=== PATIENT | male | born 1965 | race Caucasian/White ===

== ENCOUNTER 2019-12-06 16:08 | Inpatient (IN) | payer MEDICAID, OTHER, SELFPAY ==
[~2019-12-06] VITALS: Ht 167.6 cm; Wt 63.6 kg
[2019-12-06] MEDS ORDERED: NS 1,000 ML IV SCH (16:20)
[2019-12-06] MEDS ORDERED: ASPIRIN 81 MG CHEW TABLET PO ONE (16:30)
[2019-12-06] MEDS ORDERED: COMBIVENT RESPIMAT 100-20MCG INHALER 4GM INH ONE (16:30)
[2019-12-06 16:50] LABS: BASO # 0.1 10^3/uL (0.0-0.2); BASO % 0.3 % (0.0-1.0); EOS % 0.1 % (0.0-3.0); HEMATOCRIT 48.1 % (42.0-52.0); HEMOGLOBIN 16.8 g/dl (13.5-17.5); LYMPH # 1.5 10^3/uL (1.5-5.0); LYMPH % 7.8 % (24.0-44.0); MEAN CORPUSCULAR HEMOGLOBIN 31.5 pg (27.0-33.0); MEAN CORPUSCULAR HGB CONC 34.9 g/dl (32.0-36.5); MEAN CORPUSCULAR VOLUME 90.2 fl (80.0-96.0); MONO # 2.8 10^3/uL (0.0-0.8); MONO % 14.5 % (0.0-5.0); NEUTROPHILS # 14.7 10^3/uL (1.5-8.5); NEUTROPHILS % 76.8 % (36.0-66.0); PLATELET COUNT, AUTOMATED 304 10^3/uL (150-450); RED BLOOD COUNT 5.33 10^6/uL (4.30-6.10); WHITE BLOOD COUNT 19.1 10^3/uL (4.0-10.0)
[2019-12-06 16:56] LABS: ABG HCO3 23.1 MEQ/L (22.0-26.0); ABG O2 SATURATION 95.6 % (95.0-99.0); ABG PARTIAL PRESSURE CO2 33.5 mmHg (35.0-45.0); ABG PARTIAL PRESSURE O2 74.2 mmHg (75.0-100.0); ABG STANDARD HCO3 24.5 MEQ/L (22.0-26.0); ABG TOTAL CO2 24.1 MEQ/L (22.0-29.0); ABG pH (ARTERIAL) 7.456 UNITS (7.350-7.450)
[2019-12-06] MEDS ORDERED: MOXIFLOXACIN HCL 400 MG in IV 1 EA IV ONE (17:15)
[2019-12-06 17:21] LABS: ALBUMIN 3.4 GM/DL (3.2-5.2); ALT/SGPT 56 U/L (12-78); BILIRUBIN,DIRECT 0.3 MG/DL (0.0-0.2); BILIRUBIN,TOTAL 0.9 MG/DL (0.2-1.0); BLOOD UREA NITROGEN 7 MG/DL (7-18); CALCIUM LEVEL 8.9 MG/DL (8.5-10.1); CARBON DIOXIDE LEVEL 26 MEQ/L (21-32); CHLORIDE LEVEL 100 MEQ/L (98-107); CK-MB VALUE MASS < 1.0 NG/ML (<3.6); CPK CREATINE PHOSPHOKINASE 89 U/L (39-308); CREATININE FOR GFR 0.72 MG/DL (0.70-1.30); GLOMERULAR FILTRATION RATE > 60.0 (>56); GLUCOSE, FASTING 119 MG/DL (70-100); MB/CK RELATIVE INDEX 1.12 (< OR =4); POTASSIUM SERUM 4.1 MEQ/L (3.5-5.1); SODIUM LEVEL 134 MEQ/L (136-145); TOTAL PROTEIN 7.6 GM/DL (6.4-8.2); TROPONIN I < 0.02 NG/ML (< 0.10)
[2019-12-06] MEDS ORDERED: MOM 30ML SUSPENSION UDC PO PRN (19:30)
[2019-12-06] MEDS ORDERED: ACETAMINOPHEN TAB 650MG DOSE (2X325MG) PO PRN (19:30)
[2019-12-06] MEDS ORDERED: MAALOX 30 ML SUSP *UDC PO PRN (19:30)
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
[2019-12-06] MEDS: cefTRIAXone SOD 1 GM in D5W MINI-BAG PLUS 50 ML IV SCH (20:13)
[2019-12-06 20:35] VITALS: BP 151/92
[2019-12-06] MEDS ORDERED: NORCO, ANEXSIA 5/325MG TABLET (HYDROcodone/ACETAMINOPHEN) PO PRN (20:45)
[2019-12-06] MEDS ORDERED: LORazepam 2 MG TAB PO PRN (20:45)
[2019-12-06 20:59] VITALS: BP 151/92
[2019-12-06] MEDS: ENOXAPARIN 40MG/0.4ML SYRINGE (J1650 PER 10MG) SC SCH (21:20)
[2019-12-06] MEDS: LIDOCAINE 5% (LIDODERM) PATCH TD SCH (21:20)
[2019-12-06] MEDS: THIAMINE 100 MG TAB PO SCH (21:20)
[2019-12-06 22:00] VITALS: BP 158/74
[2019-12-06] MEDS: DOXYCYCLINE HYCLATE 100 MG in D5W MINI-BAG PLUS 100 ML IV SCH (22:25)
[2019-12-07] VITALS (9 sets, daily range): BP systolic 131–161; BP diastolic 78–99
[2019-12-07] MEDS: NICOTINE 7 MG/24 HR TRANSDERMAL TD SCH ×2 (00:40→21:02)
[2019-12-07 06:42] LABS: HEMATOCRIT 47.5 % (42.0-52.0); HEMOGLOBIN 16.2 g/dl (13.5-17.5); MEAN CORPUSCULAR HEMOGLOBIN 30.5 pg (27.0-33.0); MEAN CORPUSCULAR HGB CONC 34.1 g/dl (32.0-36.5); MEAN CORPUSCULAR VOLUME 89.3 fl (80.0-96.0); PLATELET COUNT, AUTOMATED 291 10^3/uL (150-450); RED BLOOD COUNT 5.32 10^6/uL (4.30-6.10); WHITE BLOOD COUNT 23.7 10^3/uL (4.0-10.0)
[2019-12-07 06:56] LABS: BLOOD UREA NITROGEN 7 MG/DL (7-18); CALCIUM LEVEL 9.1 MG/DL (8.5-10.1); CARBON DIOXIDE LEVEL 24 MEQ/L (21-32); CHLORIDE LEVEL 101 MEQ/L (98-107); CREATININE FOR GFR 0.62 MG/DL (0.70-1.30); GLOMERULAR FILTRATION RATE > 60.0 (>56); GLUCOSE, FASTING 135 MG/DL (70-100); MAGNESIUM LEVEL 1.7 MG/DL (1.8-2.4); POTASSIUM SERUM 3.7 MEQ/L (3.5-5.1); SODIUM LEVEL 132 MEQ/L (136-145)
--- NOTE | 2019-12-07 07:41 | REP ---
REASON: Cough and dyspnea. PRIORS: None. The technique utilized in obtaining the radiograph has magnified the cardiac silhouette and accentuated the interstitial markings. There is a patchy opacity in the right lower lobe silhouetting out the diaphragmatic surface of the right lung. There is some right CP angle blunting. Lung madrigal are hypoexpanded further accentuating the findings. The left lung is clear. The heart is not enlarged. The osseous structures are within normal limits. IMPRESSION: Right lower lobe pneumonia versus atelectasis and possible right pleural effusion. Electronically Signed by Albert Hernandez DO 12/07/2019 08:39 A
[2019-12-07] MEDS: THIAMINE 100 MG TAB PO SCH ×2 (08:21→21:01)
[2019-12-07] MEDS: MULTIVITAMINS/MINERALS THERAP 1 TAB PO SCH (08:21)
[2019-12-07] MEDS: FOLIC ACID 1 MG TAB PO SCH (08:21)
[2019-12-07] MEDS: MAGNESIUM OXIDE 400 MG TAB (MAG-OX) PO SCH ×2 (08:22→21:01)
[2019-12-07] MEDS: **NOTE PATIENT COMMENT** MISC XX SCH (08:22)
[2019-12-07] MEDS ORDERED: MAG SULF 1GM/100ML (MAG RUN) 1 GM in IV 1 EA IV ONE (09:00)
[2019-12-07] MEDS: DOXYCYCLINE HYCLATE 100 MG in D5W MINI-BAG PLUS 100 ML IV SCH ×2 (09:33→21:01)
--- NOTE | 2019-12-07 11:17 | ECGEPIP ---
[facility] - ED Test Date: 2019-12-06 Pat Name: MACKENZIE BAUTISTA Department: Room: - Gender: Male General Office Assistant: jfmanjit : 1965 Requested By: KAY NIX Order Number: [id number] Reading MD: Tamiko Ballesteros Measurements Intervals [place] Rate: 86 P: 48 [place]: 148 QRS: 30 QRSD: 108 T: 33 QT: 357 QTc: 429 Interpretive Statements SINUS RHYTHM INCOMPLETE RIGHT BUNDLE BRANCH BLOCK NO PRIOR Electronically Signed on 12-07-2019 11:16:54 EDT by Tamiko Ballesteros
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
[2019-12-07] MEDS: NORCO, ANEXSIA 5/325MG TABLET (HYDROcodone/ACETAMINOPHEN) PO PRN ×2 (14:46→21:03)
[2019-12-07] MEDS: cefTRIAXone SOD 1 GM in D5W MINI-BAG PLUS 50 ML IV SCH (19:36)
[2019-12-07] MEDS: ENOXAPARIN 40MG/0.4ML SYRINGE (J1650 PER 10MG) SC SCH (21:01)
[2019-12-07] MEDS: LIDOCAINE 5% (LIDODERM) PATCH TD SCH (21:02)
[2019-12-08] VITALS (7 sets, daily range): BP systolic 139–154; BP diastolic 74–95
[2019-12-08 06:55] LABS: BASO # 0.1 10^3/uL (0.0-0.2); BASO % 0.2 % (0.0-1.0); HEMATOCRIT 48.5 % (42.0-52.0); HEMOGLOBIN 16.9 g/dl (13.5-17.5); LYMPH # 1.5 10^3/uL (1.5-5.0); LYMPH % 5.2 % (24.0-44.0); MEAN CORPUSCULAR HEMOGLOBIN 31.4 pg (27.0-33.0); MEAN CORPUSCULAR HGB CONC 34.8 g/dl (32.0-36.5); MEAN CORPUSCULAR VOLUME 90.1 fl (80.0-96.0); MONO # 4.2 10^3/uL (0.0-0.8); MONO % 14.3 % (0.0-5.0); NEUTROPHILS # 23.4 10^3/uL (1.5-8.5); NEUTROPHILS % 79.5 % (36.0-66.0); PLATELET COUNT, AUTOMATED 276 10^3/uL (150-450); RED BLOOD COUNT 5.38 10^6/uL (4.30-6.10); WHITE BLOOD COUNT 29.5 10^3/uL (4.0-10.0)
[2019-12-08 07:17] LABS: BLOOD UREA NITROGEN 14 MG/DL (7-18); CARBON DIOXIDE LEVEL 24 MEQ/L (21-32); CHLORIDE LEVEL 99 MEQ/L (98-107); CREATININE FOR GFR 0.68 MG/DL (0.70-1.30); GLOMERULAR FILTRATION RATE > 60.0 (>56); GLUCOSE, FASTING 104 MG/DL (70-100); SODIUM LEVEL 133 MEQ/L (136-145)
[2019-12-08] MEDS: FOLIC ACID 1 MG TAB PO SCH (08:12)
[2019-12-08] MEDS: MULTIVITAMINS/MINERALS THERAP 1 TAB PO SCH (08:12)
[2019-12-08] MEDS: THIAMINE 100 MG TAB PO SCH ×2 (08:12→20:41)
[2019-12-08] MEDS: **NOTE PATIENT COMMENT** MISC XX SCH (08:12)
[2019-12-08] MEDS: MAGNESIUM OXIDE 400 MG TAB (MAG-OX) PO SCH ×2 (08:12→20:40)
[2019-12-08] MEDS: DOXYCYCLINE HYCLATE 100 MG in D5W MINI-BAG PLUS 100 ML IV SCH ×2 (08:12→20:42)
--- NOTE | 2019-12-08 08:46 | REP ---
REPEAT DICTATION CT CHEST WITHOUT CONTRAST: HISTORY: Shortness of breath. Preliminary report is provided at time of exam by [email or web address]. Comparison is made with portable chest x-ray obtained just prior. CT FINDINGS: Preliminary digital cement side laster radiograph demonstrates increased markings in the right base. There is extensive ground-glass opacity type infiltrate in the right lower lobe. There is slight right lower lobe volume loss. There is a small quantity of right pleural fluid. There is some interlobular septal thickening in the infiltrate. No other significant parenchymal opacity is seen. There is a bronchitis picture with inspissated endobronchial secretions and peribronchial wall thickening in the left lower lobe and right lower lobe. There is mild plate-like atelectasis in the lingula and right middle lobe at the right lung base. There is some vascular calcification. There are two mediastinal lymph nodes, the largest of which is a precarinal lymph node measuring 1.1 cm in short axis dimension. Normal adrenals are seen. There is moderate diffuse fatty infiltration of the liver. IMPRESSION: Infiltrate right lower lobe with bronchitis picture. Findings consistent with pneumonia. Bacterial versus atypical versus viral. Small right effusion. Fatty liver change. Electronically Signed by Luis Silver MD 12/08/2019 11:08 A
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
[2019-12-08] MEDS: cefTRIAXone SOD 1 GM in D5W MINI-BAG PLUS 50 ML IV SCH (19:45)
[2019-12-08] MEDS: ENOXAPARIN 40MG/0.4ML SYRINGE (J1650 PER 10MG) SC SCH (20:41)
[2019-12-08] MEDS: NICOTINE 7 MG/24 HR TRANSDERMAL TD SCH (20:43)
[2019-12-08] MEDS: LIDOCAINE 5% (LIDODERM) PATCH TD SCH (20:53)
[2019-12-09 02:00] VITALS: BP 139/79
[2019-12-09 05:48] LABS: BASO # 0.1 10^3/uL (0.0-0.2); BASO % 0.2 % (0.0-1.0); HEMATOCRIT 45.3 % (42.0-52.0); HEMOGLOBIN 15.6 g/dl (13.5-17.5); LYMPH # 1.8 10^3/uL (1.5-5.0); LYMPH % 6.9 % (24.0-44.0); MEAN CORPUSCULAR HEMOGLOBIN 30.6 pg (27.0-33.0); MEAN CORPUSCULAR HGB CONC 34.4 g/dl (32.0-36.5); MONO # 4.2 10^3/uL (0.0-0.8); MONO % 15.8 % (0.0-5.0); NEUTROPHILS % 76.4 % (36.0-66.0); PLATELET COUNT, AUTOMATED 295 10^3/uL (150-450); RED BLOOD COUNT 5.09 10^6/uL (4.30-6.10); WHITE BLOOD COUNT 26.2 10^3/uL (4.0-10.0)
[2019-12-09 06:00] VITALS: BP 135/83
[2019-12-09 06:03] LABS: BLOOD UREA NITROGEN 15 MG/DL (7-18); CALCIUM LEVEL 8.8 MG/DL (8.5-10.1); CARBON DIOXIDE LEVEL 27 MEQ/L (21-32); CHLORIDE LEVEL 99 MEQ/L (98-107); CREATININE FOR GFR 0.68 MG/DL (0.70-1.30); GLOMERULAR FILTRATION RATE > 60.0 (>56); GLUCOSE, FASTING 126 MG/DL (70-100); SODIUM LEVEL 133 MEQ/L (136-145)
[2019-12-09] MEDS: DOXYCYCLINE HYCLATE 100 MG in D5W MINI-BAG PLUS 100 ML IV SCH ×2 (08:34→20:16)
[2019-12-09] MEDS: MAGNESIUM OXIDE 400 MG TAB (MAG-OX) PO SCH ×2 (08:34→20:17)
[2019-12-09] MEDS: FOLIC ACID 1 MG TAB PO SCH (08:34)
[2019-12-09] MEDS: MULTIVITAMINS/MINERALS THERAP 1 TAB PO SCH (08:34)
[2019-12-09] MEDS: THIAMINE 100 MG TAB PO SCH (08:34)
[2019-12-09] MEDS: **NOTE PATIENT COMMENT** MISC XX SCH (08:35)
[2019-12-09] MEDS ORDERED: MOXI1TAB PO (09:34)
[2019-12-09 10:00] VITALS: BP 127/84
[2019-12-09 12:05] LABS: BASO % 0.2 % (0.0-1.0); HEMATOCRIT 43.6 % (42.0-52.0); HEMOGLOBIN 15.3 g/dl (13.5-17.5); LYMPH % 7.8 % (24.0-44.0); MEAN CORPUSCULAR HEMOGLOBIN 31.5 pg (27.0-33.0); MEAN CORPUSCULAR HGB CONC 35.1 g/dl (32.0-36.5); MEAN CORPUSCULAR VOLUME 89.7 fl (80.0-96.0); MONO # 3.8 10^3/uL (0.0-0.8); MONO % 15.2 % (0.0-5.0); NEUTROPHILS # 19.1 10^3/uL (1.5-8.5); NEUTROPHILS % 76.3 % (36.0-66.0); PLATELET COUNT, AUTOMATED 296 10^3/uL (150-450); RED BLOOD COUNT 4.86 10^6/uL (4.30-6.10)
[2019-12-09 14:00] VITALS: BP_SYST 123; BP_SYST 149; BP_DIAS 75; BP_DIAS 78
[2019-12-09] MEDS ORDERED: cefTRIAXone SOD 2 GM in D5W MINI-BAG PLUS 50 ML IV SCH (20:00)
[2019-12-09] MEDS: ENOXAPARIN 40MG/0.4ML SYRINGE (J1650 PER 10MG) SC SCH (20:16)
[2019-12-09 20:17] VITALS: BP 141/93
[2019-12-09] MEDS: LIDOCAINE 5% (LIDODERM) PATCH TD SCH (20:18)
[2019-12-09] MEDS: NICOTINE 7 MG/24 HR TRANSDERMAL TD SCH (20:18)
[2019-12-09 22:00] VITALS: BP 141/93
[2019-12-10 02:00] VITALS: BP 137/90
[2019-12-10 06:00] VITALS: BP 139/86
[2019-12-10 06:08] LABS: BASO # 0.1 10^3/uL (0.0-0.2); BASO % 0.2 % (0.0-1.0); HEMATOCRIT 42.6 % (42.0-52.0); HEMOGLOBIN 14.6 g/dl (13.5-17.5); LYMPH # 1.9 10^3/uL (1.5-5.0); LYMPH % 8.8 % (24.0-44.0); MEAN CORPUSCULAR HEMOGLOBIN 30.4 pg (27.0-33.0); MEAN CORPUSCULAR HGB CONC 34.3 g/dl (32.0-36.5); MEAN CORPUSCULAR VOLUME 88.6 fl (80.0-96.0); MONO # 3.5 10^3/uL (0.0-0.8); MONO % 16.6 % (0.0-5.0); NEUTROPHILS # 15.6 10^3/uL (1.5-8.5); NEUTROPHILS % 73.7 % (36.0-66.0); PLATELET COUNT, AUTOMATED 286 10^3/uL (150-450); RED BLOOD COUNT 4.81 10^6/uL (4.30-6.10); WHITE BLOOD COUNT 21.2 10^3/uL (4.0-10.0)
[2019-12-10 06:33] LABS: BLOOD UREA NITROGEN 14 MG/DL (7-18); CALCIUM LEVEL 8.5 MG/DL (8.5-10.1); CARBON DIOXIDE LEVEL 26 MEQ/L (21-32); CHLORIDE LEVEL 98 MEQ/L (98-107); CREATININE FOR GFR 0.66 MG/DL (0.70-1.30); GLOMERULAR FILTRATION RATE > 60.0 (>56); GLUCOSE, FASTING 116 MG/DL (70-100); POTASSIUM SERUM 3.7 MEQ/L (3.5-5.1); SODIUM LEVEL 132 MEQ/L (136-145)
[2019-12-10] MEDS: MULTIVITAMINS/MINERALS THERAP 1 TAB PO SCH (08:12)
[2019-12-10] MEDS: MAGNESIUM OXIDE 400 MG TAB (MAG-OX) PO SCH (08:12)
[2019-12-10] MEDS: FOLIC ACID 1 MG TAB PO SCH (08:12)
[2019-12-10] MEDS: DOXYCYCLINE HYCLATE 100 MG in D5W MINI-BAG PLUS 100 ML IV SCH (08:13)
[2019-12-10] MEDS: **NOTE PATIENT COMMENT** MISC XX SCH (08:13)
[2019-12-10 10:00] VITALS: BP 137/89
[2019-12-10] MEDS ORDERED: cefTRIAXone SOD 2 GM in D5W MINI-BAG PLUS 50 ML IV SCH (12:00)
--- NOTE | 2019-12-10 12:14 | IPN ---
DATE: 12/09/2019 SUBJECTIVE: "I want to go home today." Patient denies fever or chills. No shortness of breath, dyspnea on exertion. Cough productive of sputum. No nausea, vomiting, epigastric pain or diarrhea. OBJECTIVE PHYSICAL EXAMINATION VITALS: Temperature 98.3, current. Tmax on 12/08/2019 at 10:00 a.m. 100.2. Pulse 109, respiratory rate 20, blood pressure 135/83, 96% on room air. GEN:disheveled.Poor dentition with missing teeth in the upper and lower teeth. No jugular venous distention (JVD). No thyromegaly. No use of respiratory accessory muscles. No nasal flaring. Lungs: Decreased air entry. Right basilar fine crackles. Heart: S1, S2, sinus rhythm. no tachycardia. Abdomen is soft, nontender, nondistended. Positive bowel sounds. Extremities: No cyanosis, clubbing or pitting edema. LABORATORY DATA: White count 26.2, hemoglobin 30, hematocrit 45, platelet count 295. Sodium 133, potassium 4, chloride 99, bicarbonate 27, BUN 15, creatinine 0.68, glucose 126. Microbiology: Yeast in a sputum. Two sets of blood culture negative. Respiratory panel pending. CT chest 12/06/2019: Infiltrate right lower lobe with bronchitis consistent with pneumonia, small right effusion, fatty liver change. ASSESSMENT/PLAN: 54-year-old alcoholic with fatty liver admitted 12/06/2019 with complaints of shortness of breath of 1-1/2 days duration, hypertension and multiple previous surgeries presents with sepsis secondary to pneumonia. IMPRESSION: 1. Pneumonia, currently on ceftriaxone and doxycycline. White count is 26,000 today with low grade temperature yesterday at 10:00 a.m. Patient is kept on IV antibiotics, but will change to 2grams iv ceftriaxone at 1999. May transition to Avelox as outpatient. Patient is adamant about leaving today but does not want to leave against medical advice. Therefore, will recheck patient's CBC. 2. Alcohol dependence: Currently on seizure delirium tremens precautions, thiamine folate, multivitamin and Ativan. He currently denies any restlessness and paresthesias or hallucinations. 3. Hypertension: Most likely secondary to chronic back pain. Does not want any narcotics. 4. Tobacco abuse: On nicotine patch. DISPOSITION: Patient wants to leave but does want to leave against medical advice. Therefore, if white count is improved, he is clinically stable, he may be discharged home later today. ROCIO
[2019-12-10 13:17] LABS: BASO % 0.2 % (0.0-1.0); HEMATOCRIT 42.5 % (42.0-52.0); HEMOGLOBIN 14.8 g/dl (13.5-17.5); LYMPH # 1.7 10^3/uL (1.5-5.0); LYMPH % 8.2 % (24.0-44.0); MEAN CORPUSCULAR HEMOGLOBIN 31.5 pg (27.0-33.0); MEAN CORPUSCULAR HGB CONC 34.8 g/dl (32.0-36.5); MEAN CORPUSCULAR VOLUME 90.4 fl (80.0-96.0); MONO # 3.3 10^3/uL (0.0-0.8); MONO % 15.9 % (0.0-5.0); NEUTROPHILS # 15.7 10^3/uL (1.5-8.5); NEUTROPHILS % 75.2 % (36.0-66.0); PLATELET COUNT, AUTOMATED 299 10^3/uL (150-450); WHITE BLOOD COUNT 20.9 10^3/uL (4.0-10.0)
[2019-12-10 14:04] LABS: ERYTHROCYTE SEDIMENTATION RATE 68 mm/hr (0-20)
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
== END 2019-12-10 13:35 | disposition home or self-care (01) | DRG 139 ==
LOC: M ED 16:08 → M ED INP 19:24 → ENRESERV 20:03 → M MSPAV 20:35
PROVIDERS: ADMIT Internal Medicine; ATTEND General Practice
DX: J18.9 Pneumonia, unspecified organism (principal); J90 Pleural effusion, not elsewhere classified; K76.0 Fatty (change of) liver, not elsewhere classified; E83.42 Hypomagnesemia; I10 Essential (primary) hypertension; F17.200 Nicotine dependence, unspecified, uncomplicated; R73.9 Hyperglycemia, unspecified; F10.20 Alcohol dependence, uncomplicated; Z11.59 Encounter for screening for other viral diseases

== ENCOUNTER → 2019-12-16 | Outpatient (REF) | payer MEDICAID, OTHER ==
[~2019-12-16] MED LIST: MOXI1TAB PO
[2019-12-16 18:02] LABS: BASO # 0.1 10^3/uL (0.0-0.2); BASO % 0.5 % (0.0-1.0); EOS # 0.1 10^3/uL (0.0-0.5); EOS % 0.6 % (0.0-3.0); HEMATOCRIT 40.9 % (42.0-52.0); HEMOGLOBIN 13.2 g/dl (13.5-17.5); LYMPH # 2.8 10^3/uL (1.5-5.0); LYMPH % 16.4 % (24.0-44.0); MEAN CORPUSCULAR HEMOGLOBIN 30.6 pg (27.0-33.0); MEAN CORPUSCULAR HGB CONC 32.3 g/dl (32.0-36.5); MEAN CORPUSCULAR VOLUME 94.9 fl (80.0-96.0); MONO # 1.9 10^3/uL (0.0-0.8); MONO % 11.3 % (0.0-5.0); NEUTROPHILS # 12.1 10^3/uL (1.5-8.5); NEUTROPHILS % 70.6 % (36.0-66.0); PLATELET COUNT, AUTOMATED 673 10^3/uL (150-450); RED BLOOD COUNT 4.31 10^6/uL (4.30-6.10); WHITE BLOOD COUNT 17.1 10^3/uL (4.0-10.0)
[2019-12-16 18:20] LABS: HEMOGLOBIN A1c 6.1 %
[2019-12-16 18:33] LABS: ALBUMIN 2.6 GM/DL (3.2-5.2); ALT/SGPT 154 U/L (12-78); BILIRUBIN,TOTAL 0.4 MG/DL (0.2-1.0); BLOOD UREA NITROGEN 9 MG/DL (7-18); CALCIUM LEVEL 8.4 MG/DL (8.5-10.1); CARBON DIOXIDE LEVEL 28 MEQ/L (21-32); CHLORIDE LEVEL 100 MEQ/L (98-107); CHOLESTEROL LEVEL 135 MG/DL (<200); CHOLESTEROL RISK RATIO 6.428 (<5); CREATININE FOR GFR 0.73 MG/DL (0.70-1.30); FREE T4 1.45 NG/DL (0.76-1.46); GLOMERULAR FILTRATION RATE > 60.0 (>56); GLUCOSE, FASTING 103 MG/DL (70-100); HDL CHOLESTEROL 21 MG/DL (>40); LDL CHOLESTEROL 95 MG/DL (<100); NON-HDL-C 114 MG/DL; POTASSIUM SERUM 4.4 MEQ/L (3.5-5.1); SODIUM LEVEL 136 MEQ/L (136-145); TOTAL PROTEIN 7.8 GM/DL (6.4-8.2); TRIGLYCERIDES LEVEL 93 MG/DL (<150)
== END ==
LOC: M SFHCPLAZ 14:27
PROVIDERS: ATTEND Physician Assistant
DX: Z13.220 Encounter for screening for lipoid disorders (principal); Z13.29 Encounter for screening for other suspected endocrine disorder; J18.9 Pneumonia, unspecified organism; Z13.1 Encounter for screening for diabetes mellitus

== ENCOUNTER → 2020-09-28 | Outpatient (CLI) | payer MEDICAID, OTHER ==
--- NOTE | 2020-09-28 10:32 | REPPI ---
INDICATION: R06.02 SHORTNESS OF BREATH COMPARISON: 12/06/2019 TECHNIQUE: PA and lateral. FINDINGS: The mediastinum and cardiac silhouette are normal. Previously identified right lower lobe consolidation and effusion have relatively resolved leaving behind areas of parenchymal scarring and presumed pleural scarring although small pleural effusion cannot be excluded. Left hemithorax is well aerated and clear. IMPRESSION: Presumed chronic pleuroparenchymal changes involving the right mid to lower lung zone and diaphragmatic surface. Small residual right pleural effusion cannot definitively be excluded. <Electronically signed by Bipin Feliciano > 09/28/20 102
== END ==
LOC: M PLAIMG 09:29
PROVIDERS: ATTEND Physician Assistant
DX: R06.02 Shortness of breath (principal); J94.8 Other specified pleural conditions

== ENCOUNTER → 2020-10-28 | Outpatient (CLI) | payer OTHER | LOC: M LABSMTC 12:06 | PROVIDERS: ATTEND Anesthesiology | DX: Z01.812 Encounter for preprocedural laboratory examination (principal) ==

== ENCOUNTER → 2020-10-29 | Outpatient (CLI) | payer OTHER ==
--- NOTE | 2020-10-29 17:36 | REPPI ---
INDICATION: PRE OP COMPARISON: 09/28/2020. TECHNIQUE: PA/Lateral FINDINGS: Lungs: Once again there appears to be interstitial fibrotic change in the right lung base essentially unchanged. There is slight blunting of the right costophrenic angle unchanged. Left lung remains clear. Heart: Normal in size. Mediastinum: Mediastinal silhouette unremarkable. Bones and soft tissues: There are mild degenerative changes of the spine without compression deformity. IMPRESSION: Stable interstitial fibrotic parenchymal changes right lung base with slight blunting of the right costophrenic angle. No change since prior study. <Electronically signed by Selvin Matute > 10/29/20 [id number]
== END ==
LOC: M PLAIMG 14:34
PROVIDERS: ATTEND Family Medicine
DX: Z01.818 Encounter for other preprocedural examination (principal)

== ENCOUNTER → 2020-10-29 | Outpatient (REF) | payer OTHER ==
[2020-10-29 15:19] LABS: HEMATOCRIT 53.4 % (42.0-52.0); HEMOGLOBIN 17.9 g/dl (13.5-17.5); MEAN CORPUSCULAR HEMOGLOBIN 30.2 pg (27.0-33.0); MEAN CORPUSCULAR HGB CONC 33.5 g/dl (32.0-36.5); MEAN CORPUSCULAR VOLUME 90.2 fl (80.0-96.0); PLATELET COUNT, AUTOMATED 279 10^3/uL (150-450); RED BLOOD COUNT 5.92 10^6/uL (4.30-6.10); WHITE BLOOD COUNT 11.1 10^3/uL (4.0-10.0)
[2020-10-29 15:40] LABS: BLOOD UREA NITROGEN 10 MG/DL (7-18); CALCIUM LEVEL 9.3 MG/DL (8.5-10.1); CARBON DIOXIDE LEVEL 30 MEQ/L (21-32); CHLORIDE LEVEL 103 MEQ/L (98-107); CREATININE FOR GFR 0.87 MG/DL (0.70-1.30); GLOMERULAR FILTRATION RATE > 60.0 (>56); GLUCOSE, FASTING 93 MG/DL (70-100); POTASSIUM SERUM 4.2 MEQ/L (3.5-5.1); SODIUM LEVEL 138 MEQ/L (136-145)
[2020-10-29 16:16] LABS: HEMOGLOBIN A1c 5.6 %
== END ==
LOC: M SFHCPLAZ 14:34
PROVIDERS: ATTEND Family Medicine
DX: Z01.818 Encounter for other preprocedural examination (principal); R73.03 Prediabetes

== ENCOUNTER 2020-11-02 05:59 | Day surgery (SDC) | payer OTHER ==
[~2020-11-02] VITALS: Ht 167.6 cm; Wt 73.5 kg
[2020-11-02] MEDS ORDERED: ceFAZolin SOD 1 GM in D5W MINI-BAG PLUS 50 ML IV ONE (06:00)
[2020-11-02] MEDS ORDERED: LR 1,000 ML IV ONE (06:00)
[2020-11-02] MEDS ORDERED: LIDOCAINE 1% MDV 20ML VIAL SQ PRN (06:00)
[2020-11-02] MEDS ORDERED: POLYSPORIN OPHTH OINT 3.5 GM As Ordered ONE (07:15)
[2020-11-02] MEDS ORDERED: LIDOCAINE 2% W/EPINEPHRINE 20ML VIAL **PRES FREE As Ordered ONE (07:15)
[2020-11-02] MEDS ORDERED: POVIDONE-IODINE 5% OPHTH PREP SOL 30ML As Ordered ONE (07:15)
[2020-11-02] MEDS ORDERED: fentaNYL 100 MCG/2 ML INJECTION (J3010) As Ordered ONE (07:19)
[2020-11-02] MEDS ORDERED: MIDAZOLAM INJ 2MG/2ML VIAL (J2250 PER 1MG) As Ordered ONE (07:19)
[2020-11-02] MEDS ORDERED: LIDOCAINE 2% 100MG/5ML SDV (FOR ANES.) As Ordered ONE (07:19)
[2020-11-02] MEDS ORDERED: propofoL 200 MG/20 ML VIAL As Ordered ONE (07:19)
[2020-11-02] MEDS ORDERED: ACETAMINOPHEN 1000MG 100ML IV BTL (OFIRMEV) (J0131 PER 10MG) As Ordered ONE (08:10)
--- NOTE | 2020-11-02 08:47 | POST-OPPD ---
Postoperative Procedure Note Date Of Procedure: Nov 02, 2020 PREOPERATIVE DIAGNOSIS: Bilateral inferior lateral periorbital masses. POSTOPERATIVE DIAGNOSIS: same FINDINGS: right cyst, left 2 cysts PROCEDURE: Excision of bilateral inferior lateral periorbital masses. SURGEON: Dr Watkins ANESTHESIA: local with sedation SPECIMENS: right and left cysts ESTIMATED BLOOD LOSS: 1 cc REPLACED: none DRAINS: none COMPLICATIONS: none POSTOPERATIVE CONDITION: stable [id number] ALEKSANDR WATKINS DO Nov 02, 2020 08:47
[2020-11-02 09:05] VITALS: BP 123/80
--- NOTE | 2020-11-02 11:23 | RO ---
OPERATIVE NOTE DATE OF OPERATION: 11/02/2020 PREOPERATIVE DIAGNOSIS: Bilateral inferolateral periorbital masses. POSTOPERATIVE DIAGNOSIS: Bilateral inferolateral periorbital masses. PROCEDURE: Excision of bilateral inferolateral periorbital masses. ATTENDING SURGEON: Vonnie Lazar DO, FACOS ANESTHESIA: Local with sedation. SPECIMEN SENT: Right and left cyst. FINDINGS: There is right cyst x1 and left area has two cysts. ESTIMATED BLOOD LOSS: 1 mL PROCEDURE: This is a 55-year-old male who is seen in our office complaining of a slow growing cyst that he had over several months. He did stick a needle in his left periorbital area which caused some inflammation. Currently he has no active inflammation. The cyst is interfering with a downgaze position and he needs to have them removed. Risks, benefits and alternatives were discussed with the patient in detail and he is ready to proceed. The day of surgery, he was marked in the preoperative holding area. No inflammation or redness is identified and he was ready to proceed. He was brought into the operating room, placed in supine position. Preoperative antibiotics were given. Sequentials were placed on the lower calves. Sedation was given to the patient. 2% lidocaine with epinephrine was infiltrated in the area and after a sufficient time passed, we started the procedure on the right. A 1 cm incision is carried out using 15 blade. Careful dissection identified the completely walled off hard cyst which was carefully dissected of surrounding structures and removed in all entirety. The pocket was irrigated. The punctum was identified and excised together with a sliver of skin and the wound was closed in layers with interrupted 5-0 Monocryl sutures and a 6-0 Chromic gut. Then we turned our attention to the left side which was a much larger area. A horizontal incision along the crease of one of the natural rhytids was carried. Incision is 1-1/2 cm. Careful dissection is done to identify one large cyst which was completely affixed to the skin and the punctum and had partially ruptured, producing the white, thick contents. The cyst wall was dissected off the surrounding structures, the punctum identified and dissected together with the sliver of skin and then a second cyst which was completely intact was identified and it was also carefully from adhesions and removed intact. The wound was irrigated with bacitracin irrigation and then closed in layers with interrupted 5-0 Monocryl sutures and a 6-0 plain gut. Bacitracin ophthalmic ointment is applied to the incision. The patient tolerated the procedure well and transferred to the recovery room in stable condition.
== END 2020-11-02 09:16 | disposition home or self-care (01) ==
LOC: M SDC 05:59
PROVIDERS: ATTEND Plastic Surgery Surgery of the Hand
DX: L72.3 Sebaceous cyst (principal); F17.218 Nicotine dependence, cigarettes, with other nicotine-induced disorders; F12.10 Cannabis abuse, uncomplicated
CPT/HCPCS: 11441; 11442; 88304; J0131; J0690; J2250; J3010

== ENCOUNTER 2021-07-25 07:48 | Emergency (ER) | payer OTHER ==
[~2021-07-25] VITALS: Ht 170.2 cm; Wt 76.1 kg
[2021-07-25 07:48] VITALS: BP 151/90
[2021-07-25 08:38] LABS: HEMATOCRIT 50.2 % (42.0-52.0); MEAN CORPUSCULAR HGB CONC 33.9 g/dl (32.0-36.5); MEAN CORPUSCULAR VOLUME 91.6 fl (80.0-96.0); PLATELET COUNT, AUTOMATED 269 10^3/uL (150-450); RED BLOOD COUNT 5.48 10^6/uL (4.30-6.10); WHITE BLOOD COUNT 11.4 10^3/uL (4.0-10.0)
[2021-07-25 09:00] LABS: ERYTHROCYTE SEDIMENTATION RATE 7 mm/hr (0-20)
[2021-07-25 09:08] LABS: BLOOD UREA NITROGEN 13 MG/DL (7-18); C REACTIVE PROTEIN QUANTITATIV 0.79 MG/DL (0.00-0.30); CARBON DIOXIDE LEVEL 31 MEQ/L (21-32); CHLORIDE LEVEL 104 MEQ/L (98-107); CREATININE FOR GFR 0.93 MG/DL (0.70-1.30); GLOMERULAR FILTRATION RATE > 60.0 (>56); GLUCOSE, FASTING 118 MG/DL (70-100); POTASSIUM SERUM 4.3 MEQ/L (3.5-5.1); SODIUM LEVEL 139 MEQ/L (136-145)
== END 2021-07-25 10:43 | disposition left against medical advice (07) ==
LOC: M ED 07:48
DX: Z53.21 Procedure and treatment not carried out due to patient leaving prior to being seen by health care provider (principal)

== ENCOUNTER → 2022-11-09 | Outpatient (REF) | payer OTHER | LOC: M SFHCPLAZ 09:28 | PROVIDERS: ATTEND Family Medicine | DX: I10 Essential (primary) hypertension (principal); J44.9 Chronic obstructive pulmonary disease, unspecified; K70.0 Alcoholic fatty liver; Z11.9 Encounter for screening for infectious and parasitic diseases, unspecified; Z13.6 Encounter for screening for cardiovascular disorders; Z53.9 Procedure and treatment not carried out, unspecified reason ==

== ENCOUNTER → 2022-11-09 | Outpatient (CLI) | payer OTHER ==
[2022-11-09 14:36] LABS: HEMATOCRIT 56.1 % (42.0-52.0); HEMOGLOBIN 18.8 g/dl (13.5-17.5); MEAN CORPUSCULAR HEMOGLOBIN 30.9 pg (27.0-33.0); MEAN CORPUSCULAR HGB CONC 33.5 g/dl (32.0-36.5); MEAN CORPUSCULAR VOLUME 92.3 fl (80.0-96.0); PLATELET COUNT, AUTOMATED 302 10^3/uL (150-450); RED BLOOD COUNT 6.08 10^6/uL (4.30-6.10); WHITE BLOOD COUNT 10.8 10^3/uL (4.0-10.0)
[2022-11-09 14:54] LABS: HEMOGLOBIN A1c 5.6 % (4.0-6.0)
[2022-11-09 14:58] LABS: THYROID STIMULATING HORMONE 1.302 uIU/ML (0.55-4.78)
[2022-11-09 15:09] LABS: ALBUMIN 3.8 G/DL (3.2-5.2); ALKALINE PHOSPHATASE 73 U/L (46-116); ALT/SGPT 30 U/L (7.0-40); AST/SGOT 26 U/L (<34); BILIRUBIN,TOTAL 0.4 MG/DL (0.3-1.2); BLOOD UREA NITROGEN 10 MG/DL (9-23); CALCIUM LEVEL 9.2 MG/DL (8.5-10.1); CARBON DIOXIDE LEVEL 29 MMOL/L (20-31); CHLORIDE LEVEL 103 MMOL/L (98-107); CHOLESTEROL LEVEL 151 MG/DL (<200); CHOLESTEROL RISK RATIO 2.83 (<5); CREATININE FOR GFR 0.85 MG/DL (0.70-1.30); GLOMERULAR FILTRATION RATE > 60.0 (>56); GLUCOSE, FASTING 106 MG/DL (60-100); HDL CHOLESTEROL 53.3 MG/DL (>40); LDL CHOLESTEROL 81.1 MG/DL (<100); NON-HDL-C 97.7 MG/DL; POTASSIUM SERUM 4.6 MMOL/L (3.5-5.1); SODIUM LEVEL 137 MMOL/L (136-145); TOTAL PROTEIN 7.5 G/DL (5.7-8.2); TRIGLYCERIDES LEVEL 83 MG/DL (<150)
== END ==
LOC: M PLALAB 09:22
PROVIDERS: ATTEND Family Medicine
DX: Z13.6 Encounter for screening for cardiovascular disorders (principal); K70.0 Alcoholic fatty liver; Z11.9 Encounter for screening for infectious and parasitic diseases, unspecified; I10 Essential (primary) hypertension; J44.9 Chronic obstructive pulmonary disease, unspecified

== ENCOUNTER 2023-01-18 06:02 | Emergency (ER) | payer OTHER ==
[2023-01-18] MEDS ORDERED: ALBU8.5H (06:24)
[2023-01-18] MEDS ORDERED: AMLO1TAB24 (06:24)
[2023-01-18 06:38] LABS: BASO # 0.1 10^3/uL (0.0-0.2); BASO % 0.7 % (0.0-1.0); EOS # 0.1 10^3/uL (0.0-0.5); EOS % 0.7 % (0.0-3.0); HEMATOCRIT 53.2 % (42.0-52.0); HEMOGLOBIN 18.2 g/dl (13.5-17.5); LYMPH # 3.1 10^3/uL (1.5-5.0); MEAN CORPUSCULAR HEMOGLOBIN 31.4 pg (27.0-33.0); MEAN CORPUSCULAR HGB CONC 34.2 g/dl (32.0-36.5); MEAN CORPUSCULAR VOLUME 91.7 fl (80.0-96.0); MONO % 13.7 % (2.0-8.0); NEUTROPHILS # 7.3 10^3/uL (1.5-8.5); NEUTROPHILS % 59.6 % (36.0-66.0); PLATELET COUNT, AUTOMATED 279 10^3/uL (150-450); WHITE BLOOD COUNT 12.2 10^3/uL (4.0-10.0)
[2023-01-18 06:58] LABS: BLOOD UREA NITROGEN 9 MG/DL (9-23); CALCIUM LEVEL 9.8 MG/DL (8.5-10.1); CARBON DIOXIDE LEVEL 28 MMOL/L (20-31); CHLORIDE LEVEL 104 MMOL/L (98-107); CK-MB VALUE MASS < 1.0 NG/ML (<3.6); CREATININE FOR GFR 0.93 MG/DL (0.70-1.30); GLOMERULAR FILTRATION RATE > 60.0 (>56); GLUCOSE, FASTING 108 MG/DL (60-100); POTASSIUM SERUM 4.3 MMOL/L (3.5-5.1); SODIUM LEVEL 138 MMOL/L (136-145)
[2023-01-18 07:00] LABS: CPK CREATINE PHOSPHOKINASE 110 U/L (46-171)
[2023-01-18 07:05] LABS: MONO # 1.7 10^3/uL (0.0-0.8)
[2023-01-18] MEDS ORDERED: KETOROLAC 30 MG/ML 1ML VIAL IV ONE (07:35)
[2023-01-18] MEDS ORDERED: ISOVUE-370 76% 100ML VIAL As Ordered ONE (07:37)
[2023-01-18 07:54] LABS: CK-MB VALUE MASS < 1.0 NG/ML (<3.6)
[2023-01-18 08:11] LABS: CPK CREATINE PHOSPHOKINASE 96 U/L (46-171); MB/CK RELATIVE INDEX 1.04 (< OR =4)
[2023-01-18 09:25] LABS: INR 0.89; PARTIAL THROMBOPLASTIN TIME 28.1 SECONDS (24.8-34.2); PROTHROMBIN TIME 12.2 SECONDS (12.5-14.5)
[2023-01-18] MEDS ORDERED: APIXABAN 5 MG TAB (ELIQUIS) PO ONE (10:05)
[2023-01-18] MEDS ORDERED: ELIQ5TAB PO (10:06)
[2023-01-18 10:44] VITALS: BP 141/92; TEMP 97.4; O2SAT 96
[2023-01-18 11:00] LABS: DRVV SCREEN 35.5 SEC
[2023-01-18 11:52] LABS: PTT LUPUS TYPE ANTICOAG SCREEN 0.9 (0-1.2)
[2023-01-20 13:07] LABS: ANTI THROMBIN 3 ANTIGEN IMMUNO 72 % (72-124); ANTI THROMBIN 3 FUNCT ACTIVITY 89 % (75-135); PROTEIN C FUNCTIONAL ACTIVITY 90 % (73-180); PROTEIN S FUNCTIONAL ACTIVITY 120 % (63-140)
[2023-01-22 14:08] LABS: CARDIOLIPIN IGA ANTIBODY <9 APL U/mL (0-11); CARDIOLIPIN IGG ANTIBODY <9 GPL U/mL (0-14); CARDIOLIPIN IGM ANTIBODY <9 MPL U/mL (0-12); PHOSPHOLIPIDS LEVEL 193 mg/dL (127-261)
== END 2023-01-18 10:52 | disposition home or self-care (01) ==
LOC: M ED 06:02
DX: I26.99 Other pulmonary embolism without acute cor pulmonale (principal); I10 Essential (primary) hypertension; J44.9 Chronic obstructive pulmonary disease, unspecified; F10.10 Alcohol abuse, uncomplicated; K70.0 Alcoholic fatty liver; F17.200 Nicotine dependence, unspecified, uncomplicated
CPT/HCPCS: 71045; 71275; 80048; 81240; 82550; 82553; 84311; 85025; 85300; 85301; 85303; 85305; 85610; 85730; 86147; 93005; 93970; 96374; 99284; J1885; Q9967

== ENCOUNTER → 2024-08-12 | Outpatient (CLI) | payer OTHER ==
[~2024-08-12] MED LIST changes: +ALBU8.5H; +AMLO1TAB24; +ELIQ5TAB PO
== END ==
LOC: M RAD 06:40
PROVIDERS: ATTEND Family Medicine
DX: F17.210 Nicotine dependence, cigarettes, uncomplicated (principal); R91.8 Other nonspecific abnormal finding of lung field; J42 Unspecified chronic bronchitis; K76.0 Fatty (change of) liver, not elsewhere classified; J98.09 Other diseases of bronchus, not elsewhere classified

== ENCOUNTER → 2024-08-27 | Outpatient (CLI) | payer OTHER ==
[2024-08-27 18:10] LABS: BASO # 0.1 10^3/uL (0.0-0.2); BASO % 0.7 % (0.0-1.0); EOS # 0.1 10^3/uL (0.0-0.5); EOS % 0.7 % (0.0-3.0); HEMATOCRIT 54.2 % (42.0-52.0); HEMOGLOBIN 18.6 g/dl (13.5-17.5); LYMPH % 28.6 % (24.0-44.0); MEAN CORPUSCULAR HEMOGLOBIN 34.1 pg (27.0-33.0); MEAN CORPUSCULAR HGB CONC 34.3 g/dl (32.0-36.5); MEAN CORPUSCULAR VOLUME 99.4 fl (80.0-96.0); MONO # 1.5 10^3/uL (0.0-0.8); MONO % 10.8 % (2.0-8.0); NEUTROPHILS # 8.3 10^3/uL (1.5-8.5); NEUTROPHILS % 58.7 % (36.0-66.0); PLATELET COUNT, AUTOMATED 360 10^3/uL (150-450); RED BLOOD COUNT 5.45 10^6/uL (4.30-6.10); WHITE BLOOD COUNT 14.1 10^3/uL (4.0-10.0)
[2024-08-27 18:42] LABS: ALKALINE PHOSPHATASE 98 U/L (40-129); ALT/SGPT 77 U/L (7.0-40); AST/SGOT 86 U/L (<34); BILIRUBIN,TOTAL 0.7 MG/DL (0.3-1.2); BLOOD UREA NITROGEN 8 MG/DL (9-23); CALCIUM LEVEL 9.6 MG/DL (8.3-10.6); CARBON DIOXIDE LEVEL 29 MMOL/L (20-31); CHLORIDE LEVEL 101 MMOL/L (98-107); CHOLESTEROL LEVEL 198 MG/DL (<200); CHOLESTEROL RISK RATIO 5.42 (<5); CREATININE FOR GFR 0.79 MG/DL (0.70-1.30); FOLATE 3.67 NG/ML (>5.4); GLOMERULAR FILTRATION RATE > 60.0 (>49); GLUCOSE, FASTING 81 MG/DL (74-106); HDL CHOLESTEROL 36.5 MG/DL (>40); LDL CHOLESTEROL 130.5 MG/DL (<100); NON-HDL-C 161.5 MG/DL; PSA SCREENING 0.51 NG/ML (< 4.00); SODIUM LEVEL 141 MMOL/L (136-145); TOTAL PROTEIN 8.3 G/DL (5.7-8.2); TRIGLYCERIDES LEVEL 155 MG/DL (<150); VITAMIN B12 LEVEL 401 PG/ML (211-911)
== END ==
LOC: M PLALAB 15:19
PROVIDERS: ATTEND Family Medicine
DX: K76.0 Fatty (change of) liver, not elsewhere classified (principal); K70.0 Alcoholic fatty liver; F10.90 Alcohol use, unspecified, uncomplicated; Z12.5 Encounter for screening for malignant neoplasm of prostate; I10 Essential (primary) hypertension; Z01.810 Encounter for preprocedural cardiovascular examination

== ENCOUNTER 2024-09-02 06:08 | Day surgery (SDC) | payer OTHER ==
[~2024-09-02] VITALS: Ht 167.6 cm; Wt 79.4 kg
[~2024-09-02 06:08] MED LIST changes: -ALBU8.5H; +ALBU8.5H INH; +AMLO1TAB24 PO; +INCR1INH INH
[2024-09-02] MEDS ORDERED: LR 1,000 ML IV SCH (06:10)
[2024-09-02] MEDS ORDERED: ONDANSETRON 4MG 2ML VIAL As Ordered ONE (06:55)
[2024-09-02] MEDS ORDERED: LIDOCAINE 2% 100MG/5ML SDV (FOR ANES.) As Ordered ONE (06:55)
[2024-09-02] MEDS ORDERED: propofoL 200 MG/20 ML VIAL As Ordered ONE (06:55)
[2024-09-02] MEDS ORDERED: fentaNYL 100 MCG/2 ML INJECTION As Ordered ONE (06:58)
[2024-09-02] MEDS ORDERED: MIDAZOLAM INJ 2MG/2ML VIAL As Ordered ONE (06:58)
[2024-09-02] MEDS ORDERED: dexmedeTOMIDine (4MCG/ML)200MCG/50ML BTL (PRECEDEX) As Ordered ONE (07:05)
[2024-09-02] MEDS: ceFAZolin SOD 2 GM in IV 1 EA IV ONE (07:47)
[2024-09-02] MEDS: POVIDONE-IODINE 5% OPHTH PREP SOL 30ML As Ordered ONE (07:50)
[2024-09-02] MEDS: BACITRACIN OINTMENT 30GM TUBE As Ordered ONE (08:18)
[2024-09-02] MEDS: LIDOCAINE 2% W/EPINEPHRINE 20ML VIAL **PRES FREE As Ordered ONE (09:14)
[2024-09-02 09:50] VITALS: BP 128/82; TEMP 97.2; O2SAT 99
== END 2024-09-02 09:54 | disposition home or self-care (01) ==
LOC: M SDC 06:08
PROVIDERS: ATTEND Plastic Surgery Surgery of the Hand
DX: L72.0 Epidermal cyst (principal); I10 Essential (primary) hypertension; J44.9 Chronic obstructive pulmonary disease, unspecified; E78.00 Pure hypercholesterolemia, unspecified; Z86.711 Personal history of pulmonary embolism; K76.0 Fatty (change of) liver, not elsewhere classified; Z79.899 Other long term (current) drug therapy; Z79.01 Long term (current) use of anticoagulants; F17.210 Nicotine dependence, cigarettes, uncomplicated; Z91.040 Latex allergy status; Z91.048 Other nonmedicinal substance allergy status
CPT/HCPCS: 11446; 12053; 36415; 82077; 88305; J0690; J1100; J2250; J2405; J3010